=== PATIENT | male | born 1960 | race Hispanic/Latino ===

== ENCOUNTER → 2019-02-10 | Outpatient (CLI) | payer OTHER | END | disposition home or self-care (01) | LOC: OIH 10:08 | PROVIDERS: ATTEND Internal Medicine | DX: M47.816 Spondylosis without myelopathy or radiculopathy, lumbar region (principal); M47.812 Spondylosis without myelopathy or radiculopathy, cervical region; M43.16 Spondylolisthesis, lumbar region; M48.061 Spinal stenosis, lumbar region without neurogenic claudication; R05 Cough; M41.9 Scoliosis, unspecified | CPT/HCPCS: 71046; 72040; 72100 ==

== ENCOUNTER → 2020-01-05 | Outpatient (CLI) | payer OTHER | END | disposition home or self-care (01) | LOC: RAH 10:25 | PROVIDERS: ATTEND Internal Medicine | DX: I25.118 Atherosclerotic heart disease of native coronary artery with other forms of angina pectoris (principal); J44.9 Chronic obstructive pulmonary disease, unspecified; I51.7 Cardiomegaly | CPT/HCPCS: 71046 ==

== ENCOUNTER 2024-02-21 11:05 | Observation (INO) | payer OTHER ==
[2024-02-20 11:43] LABS: BASOPHILS # (AUTO) 0.05 K/uL (0.00-0.20); BASOPHILS % (AUTO) 0.7 % (0.0-5.0); EOSINOPHILS # (AUTO) 0.09 K/uL (0.00-0.70); EOSINOPHILS % (AUTO) 1.2 % (0.0-8.0); HEMATOCRIT 47.8 % (42-54); IMMATURE GRANULOCYTE ABSOLUTE 0.02 K/uL (0-1); LYMPHOCYTES # (AUTO) 1.3 K/uL (1.0-4.8); LYMPHOCYTES % (AUTO) 17.3 % (21.0-51.0); MEAN CORPUSCULAR HEMOGLOBIN 31.7 pg (27.0-33.0); MEAN CORPUSCULAR HGB CONC 33.3 g/dL (32.0-36.0); MEAN CORPUSCULAR VOLUME 95.2 fL (79-99); MONOCYTES # (AUTO) 0.8 K/uL (0.1-1.0); MONOCYTES % (AUTO) 10.8 % (3.0-13.0); NEUTROPHILS % (AUTO) 69.7 % (40.0-77.0); PLATELET COUNT (AUTO) 227 K/uL (130-400); RED BLOOD CELL COUNT(AUTO) 5.02 MIL/uL (4.50-6.20); RED CELL DISTRIBUTION WIDTH 13.5 % (11.0-15.5); WHITE BLOOD COUNT (AUTO) 7.2 K/uL (4.8-10.8)
[2024-02-20 11:48] LABS: CREATININE 0.8 mg/dL (0.5-1.3)
[2024-02-20 11:53] LABS: INR 1.07 (0.85-1.15); PROTHROMBIN TIME 11.5 SEC (9.6-11.6)
[2024-02-20 11:55] LABS: PARTIAL THROMBOPLASTIN TIME 28.2 SEC (26.3-35.5)
[2024-02-20 12:18] LABS: B-TYPE NATRIURETIC PEPTIDE 71 pg/mL (0-100)
[2024-02-20 12:26] VITALS: BP 152/86; PULSE 76; RESP 18; TEMP 98.2
[2024-02-21] VITALS (13 sets, daily range): BP systolic 106–149; BP diastolic 73–102; PULSE 74–114; RESP 14–18; TEMP 97.9–98.8; O2SAT 95
[~2024-02-21] VITALS: Ht 175.3 cm; Wt 68.0 kg
[~2024-02-21 11:05] MED LIST: 0.9% NACL 500ML IV.SOLN 500 ML IV SCH; AEC81 PO; FLUT1BLS3 IH; METO50TA18 PO; NITR0.4T50 SL; ROSU20TA73 PO; SACU1TAB PO
[2024-02-21] MEDS: 0.9%NACL 1000ML 1,000 ML IV ONE (11:48)
[2024-02-21] MEDS ORDERED: IOHEXOL 350 MG/ML 100ML INFUS..BTL IV ONE (15:14)
[2024-02-21] MEDS ORDERED: LIDOCAINE HCL 400MG/20ML VIAL ONE (15:14)
[2024-02-21] MEDS ORDERED: NITROGLYCERIN 50MG VIAL ONE (15:15)
[2024-02-21] MEDS ORDERED: HEParin-NS 1,000 UNIT/500 ML 1,000 ML IV ONE (15:15)
[2024-02-21] MEDS ORDERED: HEParin 10,000 UNIT/10ML (1,000 UNIT/ML) VIAL ONE (15:17)
[2024-02-21] MEDS ORDERED: VERAPAMIL HCL 2.5 MG/ML VIAL ONE (15:45)
[2024-02-21] MEDS ORDERED: MIDAZOLAM HCL 1 MG/ML 2ML VIAL ONE (15:53)
[2024-02-21] MEDS ORDERED: FENTanyl CITRate PF 50 MCG/1 ML 2ML VIAL ONE (15:53)
[2024-02-21] MEDS ORDERED: IOHEXOL-350 50ML VIAL IV ONE (17:02)
[2024-02-21] MEDS ORDERED: hydrALAZine 20MG/ML VIAL ONE (17:34)
[2024-02-21] MEDS ORDERED: NITROGLYCERIN 0.4 MG SL TAB SL PRN (18:00)
[2024-02-21] MEDS: atorVAStatin 40 MG TABLET PO SCH (21:46)
[2024-02-21] MEDS: metoPROLOL tartRATE 50 MG TAB PO SCH (21:46)
[2024-02-21] MEDS: 0.9%NACL 1000ML 1,000 ML IV SCH (21:59)
[2024-02-22 00:22] VITALS: BP 120/83; PULSE 105; RESP 18
[2024-02-22 00:39] VITALS: BP 96/63; PULSE 80; RESP 18; TEMP 98.8
[2024-02-22 01:22] VITALS: BP 96/63; PULSE 77; RESP 20
[2024-02-22 04:19] VITALS: BP 122/79; PULSE 96; RESP 18; TEMP 98.4
[2024-02-22 04:19] LABS: BASOPHILS # (AUTO) 0.05 K/uL (0.00-0.20); BASOPHILS % (AUTO) 0.6 % (0.0-5.0); EOSINOPHILS # (AUTO) 0.16 K/uL (0.00-0.70); HEMATOCRIT 45.8 % (42-54); IMMATURE GRANULOCYTE ABSOLUTE 0.02 K/uL (0-1); LYMPHOCYTES # (AUTO) 1.4 K/uL (1.0-4.8); MEAN CORPUSCULAR HEMOGLOBIN 31.2 pg (27.0-33.0); MEAN CORPUSCULAR HGB CONC 33.4 g/dL (32.0-36.0); MEAN CORPUSCULAR VOLUME 93.3 fL (79-99); MONOCYTES # (AUTO) 1.1 K/uL (0.1-1.0); MONOCYTES % (AUTO) 12.9 % (3.0-13.0); NEUTROPHILS # (AUTO) 5.5 K/uL (1.8-7.7); NEUTROPHILS % (AUTO) 67.3 % (40.0-77.0); PLATELET COUNT (AUTO) 201 K/uL (130-400); RED BLOOD CELL COUNT(AUTO) 4.91 MIL/uL (4.50-6.20); RED CELL DISTRIBUTION WIDTH 13.5 % (11.0-15.5); WHITE BLOOD COUNT (AUTO) 8.2 K/uL (4.8-10.8)
[2024-02-22 04:34] LABS: MAGNESIUM 2.1 mg/dL (1.80-2.40); POTASSIUM 3.7 mmol/L (3.5-5.1); TOTAL PROTEIN, SERUM 6.4 g/dL (6.0-8.3)
[2024-02-22] MEDS ORDERED: PoTASSium chl 10% ELIXIR 20MEQ 20 MEQ/15 ML UDCUP PO PRN (06:00)
[2024-02-22] MEDS ORDERED: MAGNESIUM 2GM PREMIX 50ML 50 ML IV PRN (06:00)
[2024-02-22] MEDS ORDERED: PoTASSium chloRIDE 20MEQ/100ML 100 ML IV PRN (06:00)
[2024-02-22] MEDS: PoTASSium chloRIDE 20MEQ ER 20 MEQ ERTAB PO PRN (06:21)
[2024-02-22 07:23] VITALS: BP 130/83; PULSE 77; RESP 18; TEMP 98
[2024-02-22 08:00] VITALS: O2SAT 96
[2024-02-22] MEDS: ASPIRIN 81 MG EC TAB PO SCH (08:02)
[2024-02-22] MEDS: ***HM***(Fluticasone/Umeclidin/Vilanter (Trelegy Ellipta 100-62.5- IH SCH (08:03)
== END 2024-02-22 10:59 | disposition home or self-care (01) ==
LOC: DAH 11:05 → DAHIP 11:06 → DAH 11:06 → 2DH 20:56
PROVIDERS: ADMIT Internal Medicine Interventional Cardiology; ATTEND Internal Medicine Interventional Cardiology
DX: I25.118 Atherosclerotic heart disease of native coronary artery with other forms of angina pectoris (principal); I11.0 Hypertensive heart disease with heart failure; I50.22 Chronic systolic (congestive) heart failure; E78.2 Mixed hyperlipidemia; I25.5 Ischemic cardiomyopathy; I65.23 Occlusion and stenosis of bilateral carotid arteries; R33.8 Other retention of urine; J44.9 Chronic obstructive pulmonary disease, unspecified; I73.9 Peripheral vascular disease, unspecified; Z87.891 Personal history of nicotine dependence; Z79.899 Other long term (current) drug therapy; Z98.890 Other specified postprocedural states
CPT/HCPCS: 80048; 83880; 85025 ×2; 85610; 85730; 36415 ×2; 71045; 93005; 93458; 83735; 80053; C1894 ×3; C1760; Q9965 ×2; G0378 ×17; J3010; J3490 ×2; J7030; J0360; J2250; J1644; Q9967 ×2; A4215; A4223 ×3; A4222; A4221; A4663; A4216; A4606; 99156; 99157